=== PATIENT | female | born 1995 | race Hispanic/Latino ===

== ENCOUNTER 2016-11-16 15:41 | Emergency (ER) | payer OTHER ==
[~2016-11-16] VITALS: Ht 154.9 cm; Wt 72.7 kg
[2016-11-16] MEDS ORDERED: cefTRIAXone SOD 250 MG VIAL (J0696) IM ONE (16:30)
[2016-11-16] MEDS ORDERED: AZITHROMYCIN 250 MG TAB PO ONE (16:30)
[2016-11-16 16:56] VITALS: BP 136/97
== END 2016-11-16 16:57 | disposition home or self-care (01) ==
LOC: M ED 15:41
DX: Z20.2 Contact with and (suspected) exposure to infections with a predominantly sexual mode of transmission (principal)
CPT/HCPCS: 81025; 87491; 87591; 96372; 99283; J0696

== ENCOUNTER 2017-09-11 10:33 | Outpatient (CLI) | payer OTHER | END 2017-09-11 12:25 | disposition home or self-care (01) | LOC: M LDO 10:33 | DX: O47.1 False labor at or after 37 completed weeks of gestation (principal); Z3A.38 38 weeks gestation of pregnancy | CPT/HCPCS: 59025 ==

== ENCOUNTER 2017-09-12 02:15 | Inpatient (IN) | payer OTHER ==
[2017-09-12 03:13] LABS: HEMATOCRIT 41.7 % (36.0-47.0); HEMOGLOBIN 13.9 g/dl (12.0-15.5); MEAN CORPUSCULAR HGB CONC 33.3 g/dl (32.0-36.5); MEAN CORPUSCULAR VOLUME 89.9 fl (80.0-96.0); PLATELET COUNT, AUTOMATED 257 10^3/uL (150-450); RED BLOOD COUNT 4.64 10^6/uL (4.00-5.40); WHITE BLOOD COUNT 18.4 10^3/uL (4.0-10.0)
[2017-09-12] MEDS: PENICILLIN G POTASSIUM IV 5 MU in D5W MINI-BAG PLUS 100 ML IV (03:20)
[2017-09-12] MEDS: LR 1,000 ML IV ×4 (03:20→08:14)
[2017-09-12] MEDS ORDERED: FENTANYL 2MCG/ML ROPIVACAINE 0.2% IN 0.9% NACL 200ML IVBAG As Ordered (03:51)
[2017-09-12] MEDS ORDERED: diphenhydrAMINE INJ 50MG/ML VIAL (J1200) IV (05:15)
[2017-09-12] MEDS ORDERED: ONDANSETRON 4MG/2ML VIAL (J2405) IV (05:15)
[2017-09-12] MEDS ORDERED: EPIDURAL COMMENT XX (05:15)
[2017-09-12] MEDS ORDERED: REFRIGERATOR IV KEYS XX (05:15)
[2017-09-12] MEDS ORDERED: NALOXONE INJ 0.4 MG/1 ML VIAL (J2310) IV (05:15)
[2017-09-12] MEDS ORDERED: FENTANYL/ROPIVACAINE/NACL BAG 200 ML EPIDURAL (05:15)
[2017-09-12] MEDS ORDERED: EPIDURAL/PCA KEYS XX (05:15)
[2017-09-12] MEDS: ePHEDrine SULFATE 25 MG/5 ML(5MG/ML) SYRINGE IV ×3 (05:41→07:10)
[2017-09-12] MEDS ORDERED: OXYTOCIN 30 UNITS IN 0.9% NaCl 500ML IV BAG (J2590) As Ordered (06:54)
[2017-09-12] MEDS: PENICILLIN G POTASSIUM IV 2.5 MU in APPROPRIATE DILUENT 1 EA IV (07:10)
[2017-09-12] MEDS: ACETAMINOPHEN 325 MG TAB PO (09:03)
[2017-09-12 10:01] LABS: CORD GAS ABE A -6.4; CORD GAS HCO3 A 24.4 MEQ/L; CORD GAS O2 SAT A 21.9 %; CORD GAS PCO2 A 70.5 mmHg; CORD GAS PH A 7.157 UNITS; CORD GAS PO2 A 15.7 mmHg; CORD GAS SBC A 17.5 MEQ/L; CORD GAS TCO2 A 26.6 MEQ/L
[2017-09-12 10:04] LABS: CORD GAS ABE V -6.6; CORD GAS HCO3 V 21.8 MEQ/L; CORD GAS O2 SAT V 50.5 %; CORD GAS PCO2 V 53.9 mmHg; CORD GAS PH V 7.225 UNITS; CORD GAS PO2 V 23.8 mmHg; CORD GAS TCO2 V 23.5 MEQ/L
[2017-09-12] MEDS: OXYTOCIN DRIP 30 UNITS in APPROPRIATE DILUENT 1 EA IV (10:19)
[2017-09-12] MEDS ORDERED: DIBUCAINE 1% OINTMENT 30GM TOP (10:30)
[2017-09-12] MEDS ORDERED: ACETAMINOPHEN 500 MG TAB PO (10:30)
[2017-09-12] MEDS ORDERED: ANUSOL HC CREAM 30GM TOP (10:30)
[2017-09-12] MEDS ORDERED: METHYLERGONOVINE MALEATE 0.2 MG TAB PO (10:30)
[2017-09-12] MEDS ORDERED: RHOGAM 300 MCG (1500 IU) INJ (J2790) IM (10:30)
[2017-09-12] MEDS ORDERED: MEASLES,MUMPS,RUBELLA VACCINE INJ (MMR-II) (90707) SC (10:30)
[2017-09-12] MEDS: OXYTOCIN INJ 10 UNITS/ML VIAL (J2590) IV (10:30)
[2017-09-12] MEDS ORDERED: MOM 30ML SUSPENSION UDC PO (10:30)
[2017-09-12] MEDS: PIPERACILLIN/TAZOBACTAM SOD 3.375 GM in D5W MINI-BAG PLUS 50 ML IV ×2 (12:45→20:19)
[2017-09-12] MEDS: IBUPROFEN 800 MG TAB PO (16:51)
[2017-09-13] MEDS: PIPERACILLIN/TAZOBACTAM SOD 3.375 GM in D5W MINI-BAG PLUS 50 ML IV ×2 (04:01→12:00)
[2017-09-13 07:08] LABS: HEMATOCRIT 36.2 % (36.0-47.0); MEAN CORPUSCULAR HEMOGLOBIN 30.3 pg (27.0-33.0); MEAN CORPUSCULAR HGB CONC 33.1 g/dl (32.0-36.5); MEAN CORPUSCULAR VOLUME 91.4 fl (80.0-96.0); PLATELET COUNT, AUTOMATED 224 10^3/uL (150-450); RED BLOOD COUNT 3.96 10^6/uL (4.00-5.40); RED CELL DISTRIBUTION WIDTH 14.8 % (11.5-14.5); WHITE BLOOD COUNT 27.1 10^3/uL (4.0-10.0)
[2017-09-13] MEDS: PRENATAL VITAMINS CHEWABLE TABLET PO (08:29)
[2017-09-13] MEDS: DOCUSATE SODIUM 100 MG CAP PO (21:54)
[2017-09-14] MEDS: PRENATAL VITAMINS CHEWABLE TABLET PO (09:45)
== END 2017-09-14 11:00 | disposition home or self-care (01) | DRG 775 ==
LOC: M LDO 02:15 → M LDI 02:43 → M OBS 13:01
PROVIDERS: Obstetrics & Gynecology
PROC: 10E0XZZ Delivery of Products of Conception, External Approach (ICD-10-PCS; principal; 2017-09-12)
PROC: 0W8NXZZ Division of Female Perineum, External Approach (ICD-10-PCS; 2017-09-12)
PROC: 10907ZC Drainage of Amniotic Fluid, Therapeutic from Products of Conception, Via Natural or Artificial Opening (ICD-10-PCS; 2017-09-12)
PROC: 0WQNXZZ Repair Female Perineum, External Approach (ICD-10-PCS; 2017-09-12)
DX: O69.89X0 Labor and delivery complicated by other cord complications, not applicable or unspecified (principal); O41.1230 Chorioamnionitis, third trimester, not applicable or unspecified; O76 Abnormality in fetal heart rate and rhythm complicating labor and delivery; O99.824 Streptococcus B carrier state complicating childbirth; Z3A.38 38 weeks gestation of pregnancy; Z37.0 Single live birth